=== PATIENT | male | born 1950 | race Caucasian/White ===

== ENCOUNTER 2022-05-05 07:36 | Day surgery (SDC) | payer MEDICARE ==
[~2022-05-05] VITALS: Ht 172.7 cm; Wt 73.5 kg
[~2022-05-05 07:36] MED LIST: ADV100INH INH; BENA25CA4 PO; BSS IRRIG/VANCO(10MG)/TOBRA(5MG)/EPINEPH(1:1000-0.5CC)500ML BAG-ORONLY IR ONE; CEFUROXIME 1MG/0.1ML INTRACAMERAL INJ As Ordered ONE; CETI5CHW PO; CYCLOPENTOLATE 1% OPHTH SOLN 2 ML BTL OD SCH; LIDOCAINE 1% SDV 5ML VIAL As Ordered ONE; LIDOCAINE 3.5 % 1ML OPHTH TOPICAL GEL OU ONE; LISI40TA4 PO; OFLOXACIN 0.3 % (OCUFLOX) OPTH SOL 5ML OD ONE; PHENYLEPHRINE 2.5% OPHTH SOL 2ML OD SCH; PHENYLEPHRINE HCL 10 % OPHTH. SOL 5ML OD PRN; POVIDONE-IODINE 5% OPHTH PREP SOL 30ML As Ordered ONE; PRESCAP PO; TROPICAMIDE 1% OPHTH SOLN 2ML OD SCH
[2022-05-05] MEDS ORDERED: MIDAZOLAM INJ 2MG/2ML VIAL (J2250 PER 1MG) As Ordered ONE (09:32)
[2022-05-05] MEDS ORDERED: fentaNYL 100 MCG/2 ML INJECTION As Ordered ONE (09:32)
[2022-05-05 09:35] VITALS: BP 144/85
== END 2022-05-05 09:55 | disposition home or self-care (01) ==
LOC: M SDC 07:36
PROVIDERS: ATTEND Ophthalmology
DX: H25.11 Age-related nuclear cataract, right eye (principal); I10 Essential (primary) hypertension; Z91.018 Allergy to other foods
CPT/HCPCS: 66984; J0697; J2250; J3010; V2632

== ENCOUNTER 2022-06-30 11:37 | Day surgery (SDC) | payer MEDICARE, MEDICAID ==
[~2022-06-30] VITALS: Ht 177.8 cm; Wt 73.1 kg
[~2022-06-30 11:37] MED LIST changes: +ACETYLCHOLINE OPHTH SOLN 1% 2ML (MIOCHOL-E) As Ordered ONE; -CYCLOPENTOLATE 1% OPHTH SOLN 2 ML BTL OD SCH; +CYCLOPENTOLATE 1% OPHTH SOLN 2 ML BTL OS SCH; +LIDOCAINE 1% 1ML PF SYRINGE (OR EYE CASES) As Ordered ONE; -LIDOCAINE 1% SDV 5ML VIAL As Ordered ONE; +MIDAZOLAM INJ 2MG/2ML VIAL (J2250 PER 1MG) As Ordered ONE; -OFLOXACIN 0.3 % (OCUFLOX) OPTH SOL 5ML OD ONE; +OFLOXACIN 0.3 % (OCUFLOX) OPTH SOL 5ML OS ONE; +PHENYLEPHRINE 10% OPHTH SOL 5ML OS PRN; -PHENYLEPHRINE 2.5% OPHTH SOL 2ML OD SCH; +PHENYLEPHRINE 2.5% OPHTH SOL 2ML OS SCH; -PHENYLEPHRINE HCL 10 % OPHTH. SOL 5ML OD PRN; -POVIDONE-IODINE 5% OPHTH PREP SOL 30ML As Ordered ONE; +TROPICAMIDE 1% OPHTH SOLN 15ML OS SCH; -TROPICAMIDE 1% OPHTH SOLN 2ML OD SCH
[2022-06-30 14:00] VITALS: BP 158/89
== END 2022-06-30 14:15 | disposition home or self-care (01) ==
LOC: M SDC 11:37 → MERGE 13:30 → M SDC 14:15
PROVIDERS: ATTEND Ophthalmology
DX: H25.12 Age-related nuclear cataract, left eye (principal); H57.03 Miosis; I10 Essential (primary) hypertension; R12 Heartburn; F41.9 Anxiety disorder, unspecified; J44.9 Chronic obstructive pulmonary disease, unspecified; F17.210 Nicotine dependence, cigarettes, uncomplicated; Z91.018 Allergy to other foods; Z79.899 Other long term (current) drug therapy; Z79.51 Long term (current) use of inhaled steroids
CPT/HCPCS: 66982; J0697; J2250; V2632

== ENCOUNTER 2024-12-07 23:18 | Inpatient (IN) | payer MEDICARE, MEDICAID ==
[~2024-12-07] VITALS: Ht 172.7 cm; Wt 71.8 kg
[2024-12-07 23:15] VITALS: BP 123/80; TEMP 97.9; O2SAT 95
[~2024-12-07 23:18] MED LIST changes: -ACETYLCHOLINE OPHTH SOLN 1% 2ML (MIOCHOL-E) As Ordered ONE; -ADV100INH INH; +ADVA1AER8 INH; -BSS IRRIG/VANCO(10MG)/TOBRA(5MG)/EPINEPH(1:1000-0.5CC)500ML BAG-ORONLY IR ONE; -CEFUROXIME 1MG/0.1ML INTRACAMERAL INJ As Ordered ONE; -CYCLOPENTOLATE 1% OPHTH SOLN 2 ML BTL OS SCH; -LIDOCAINE 1% 1ML PF SYRINGE (OR EYE CASES) As Ordered ONE; -LIDOCAINE 3.5 % 1ML OPHTH TOPICAL GEL OU ONE; -MIDAZOLAM INJ 2MG/2ML VIAL (J2250 PER 1MG) As Ordered ONE; -OFLOXACIN 0.3 % (OCUFLOX) OPTH SOL 5ML OS ONE; -PHENYLEPHRINE 10% OPHTH SOL 5ML OS PRN; -PHENYLEPHRINE 2.5% OPHTH SOL 2ML OS SCH; -TROPICAMIDE 1% OPHTH SOLN 15ML OS SCH
[2024-12-07] MEDS ORDERED: MORPHINE 2 MG/ML 1ML VIAL IV PRN (23:55)
[2024-12-07] MEDS ORDERED: PROMETHAZINE 25MG/ML 1ML VIAL IV PRN (23:55)
[2024-12-08] VITALS (7 sets, daily range): BP systolic 123–152; BP diastolic 73–95; TEMP 98.1–98.2; O2SAT 93–96
[2024-12-08 00:36] LABS: BASO # 0.1 10^3/uL (0.0-0.2); BASO % 0.4 % (0.0-1.0); EOS % 0.1 % (0.0-3.0); HEMATOCRIT 33.9 % (42.0-52.0); HEMOGLOBIN 12.3 g/dl (13.5-17.5); LYMPH # 1.7 10^3/uL (1.5-5.0); LYMPH % 10.8 % (24.0-44.0); MEAN CORPUSCULAR HEMOGLOBIN 33.4 pg (27.0-33.0); MEAN CORPUSCULAR HGB CONC 36.3 g/dl (32.0-36.5); MEAN CORPUSCULAR VOLUME 92.1 fl (80.0-96.0); MONO # 1.7 10^3/uL (0.0-0.8); MONO % 10.4 % (2.0-8.0); NEUTROPHILS # 12.5 10^3/uL (1.5-8.5); NEUTROPHILS % 77.8 % (36.0-66.0); PLATELET COUNT, AUTOMATED 356 10^3/uL (150-450); RED BLOOD COUNT 3.68 10^6/uL (4.30-6.10); WHITE BLOOD COUNT 16.1 10^3/uL (4.0-10.0)
[2024-12-08] MEDS: LR 1,000 ML IV SCH (00:38)
[2024-12-08 00:40] LABS: INR 0.86; PARTIAL THROMBOPLASTIN TIME 26.8 SECONDS (24.8-34.2)
[2024-12-08 00:54] LABS: ALBUMIN 3.9 G/DL (3.2-5.2); BILIRUBIN,TOTAL 0.6 MG/DL (0.3-1.2); CREATININE FOR GFR 0.92 MG/DL (0.70-1.30); GLOMERULAR FILTRATION RATE 87.3 (>42)
[2024-12-08] MEDS: KETOROLAC 30 MG/ML 1ML VIAL IV PRN (01:25)
[2024-12-08] MEDS ORDERED: ALBUTEROL 90 MCG/ACT 8GM HFA INHALER INH PRN (06:20)
[2024-12-08 08:01] LABS: BASO # 0.1 10^3/uL (0.0-0.2); BASO % 0.4 % (0.0-1.0); EOS # 0.1 10^3/uL (0.0-0.5); EOS % 0.6 % (0.0-3.0); HEMATOCRIT 34.3 % (42.0-52.0); HEMOGLOBIN 12.1 g/dl (13.5-17.5); LYMPH # 1.3 10^3/uL (1.5-5.0); LYMPH % 10.8 % (24.0-44.0); MEAN CORPUSCULAR HEMOGLOBIN 32.7 pg (27.0-33.0); MEAN CORPUSCULAR HGB CONC 35.3 g/dl (32.0-36.5); MEAN CORPUSCULAR VOLUME 92.7 fl (80.0-96.0); MONO # 1.5 10^3/uL (0.0-0.8); MONO % 12.3 % (2.0-8.0); NEUTROPHILS # 9.3 10^3/uL (1.5-8.5); NEUTROPHILS % 75.4 % (36.0-66.0); PLATELET COUNT, AUTOMATED 360 10^3/uL (150-450); WHITE BLOOD COUNT 12.4 10^3/uL (4.0-10.0)
[2024-12-08 08:21] LABS: C REACTIVE PROTEIN QUANTITATIV 2.08 MG/DL (<1.0)
[2024-12-08 08:31] LABS: CALCIUM LEVEL 8.7 MG/DL (8.3-10.6); CREATININE FOR GFR 1.1 MG/DL (0.70-1.30); GLOMERULAR FILTRATION RATE 70.4 (>42); POTASSIUM SERUM 4.8 MMOL/L (3.5-5.1)
[2024-12-08] MEDS ORDERED: IBUP200C28 PO (08:32)
[2024-12-08] MEDS ORDERED: BUDE10.7 INH (08:32)
[2024-12-08] MEDS ORDERED: OCUVTAB4 PO (08:32)
[2024-12-08] MEDS ORDERED: CETI-24 PO (08:32)
[2024-12-08] MEDS ORDERED: LISI20TA33 PO (08:32)
[2024-12-08] MEDS ORDERED: COMBAER6 INH (08:32)
[2024-12-08] MEDS ORDERED: DIPH25TA4 PO (08:32)
[2024-12-08 08:33] LABS: PROCALCITONIN 0.15 ng/ml
[2024-12-08] MEDS ORDERED: HOME MED LIST COMPLETE! XX SCH (08:35)
[2024-12-08] MEDS: PANTOPRAZOLE 40MG VIAL IV SCH (08:36)
[2024-12-08] MEDS ORDERED: IPRATROPIUM 0.5MG/ALBUTEROL 2.5MG INH SOL UD 3ML NEB PRN (10:10)
[2024-12-08] MEDS: CETIRIZINE 10 MG TAB PO SCH (11:30)
[2024-12-08] MEDS: ACETAMINOPHEN 325 MG TAB PO PRN (11:33)
[2024-12-08] MEDS ORDERED: LORazepam 2 MG TAB PO PRN (11:40)
[2024-12-08] MEDS: TOLVAPTAN 7.5 MG HALF-TAB PO ONE (12:17)
[2024-12-08] MEDS: LOSARTAN 25 MG TAB PO SCH (12:17)
[2024-12-08] MEDS: FOLIC ACID 1MG TAB PO SCH (12:17)
[2024-12-08] MEDS: MULTIVITAMINS/MINERALS THERAP 1 TAB PO SCH (12:17)
[2024-12-08] MEDS: ENOXAPARIN 40MG/0.4ML SYRINGE (J1650 PER 10MG) SC SCH (12:18)
[2024-12-08] MEDS: THIAMINE 100 MG TAB PO SCH (12:18)
[2024-12-08] MEDS: chlordiazePOXIDE 25 MG CAP PO SCH (12:29)
[2024-12-08] MEDS: IPRATROPIUM 0.5MG/ALBUTEROL 2.5MG INH SOL UD 3ML NEB SCH (13:30)
[2024-12-08 16:54] LABS: CALCIUM LEVEL 8.2 MG/DL (8.3-10.6); CREATININE FOR GFR 1.01 MG/DL (0.70-1.30); POTASSIUM SERUM 4.9 MMOL/L (3.5-5.1)
[2024-12-08] MEDS: NICOTINE 14 MG/24 HR TRANSDERMAL TD SCH (17:54)
[2024-12-08] MEDS: BREZTRI INH SCH (19:34)
[2024-12-09] VITALS (13 sets, daily range): BP systolic 76–148; BP diastolic 52–94; TEMP 97.5–99.1; O2SAT 92–96
[2024-12-09 06:28] LABS: BASO # 0.1 10^3/uL (0.0-0.2); BASO % 0.5 % (0.0-1.0); EOS # 0.1 10^3/uL (0.0-0.5); EOS % 0.4 % (0.0-3.0); HEMATOCRIT 32.7 % (42.0-52.0); HEMOGLOBIN 11.6 g/dl (13.5-17.5); LYMPH # 1.3 10^3/uL (1.5-5.0); LYMPH % 9.5 % (24.0-44.0); MEAN CORPUSCULAR HGB CONC 35.5 g/dl (32.0-36.5); MEAN CORPUSCULAR VOLUME 93.2 fl (80.0-96.0); MONO # 1.6 10^3/uL (0.0-0.8); NEUTROPHILS # 10.3 10^3/uL (1.5-8.5); NEUTROPHILS % 77.1 % (36.0-66.0); PLATELET COUNT, AUTOMATED 342 10^3/uL (150-450); RED BLOOD COUNT 3.51 10^6/uL (4.30-6.10); WHITE BLOOD COUNT 13.3 10^3/uL (4.0-10.0)
[2024-12-09 06:58] LABS: CALCIUM LEVEL 8.8 MG/DL (8.3-10.6); CREATININE FOR GFR 0.97 MG/DL (0.70-1.30); GLOMERULAR FILTRATION RATE 81.9 (>42)
[2024-12-09] MEDS ORDERED: ROCURONIUM BROMIDE 50MG/5ML VIAL As Ordered ONE (12:29)
[2024-12-09] MEDS ORDERED: LIDOCAINE 2% 100MG/5ML SDV (FOR ANES.) As Ordered ONE (12:29)
[2024-12-09] MEDS ORDERED: propofoL 200 MG/20 ML VIAL As Ordered ONE (12:29)
[2024-12-09] MEDS ORDERED: fentaNYL 100 MCG/2 ML INJECTION As Ordered ONE (13:18)
[2024-12-09] MEDS ORDERED: MIDAZOLAM INJ 2MG/2ML VIAL As Ordered ONE (13:18)
[2024-12-09] MEDS: TRANEXAMIC ACID 100 MG/ML 10ML VIAL As Ordered ONE (13:30)
[2024-12-09] MEDS: ceFAZolin SODIUM 2 GM VIAL As Ordered ONE (13:33)
[2024-12-09] MEDS ORDERED: PHENYLEPHRINE 10MG/ML 1ML VIAL As Ordered ONE (13:47)
[2024-12-09] MEDS ORDERED: ONDANSETRON 4MG 2ML VIAL As Ordered ONE (13:47)
[2024-12-09] MEDS ORDERED: ACETAMINOPHEN 1000MG/100ML IV BAG As Ordered ONE (14:57)
[2024-12-09] MEDS ORDERED: SUGAMMADEX SODIUM 500 MG/5 ML VIAL As Ordered ONE (15:14)
[2024-12-09] MEDS ORDERED: HYDROmorphone HCL 2MG/ML 1ML VIAL As Ordered ONE (15:17)
[2024-12-09] MEDS: VANCOMYCIN 1000MG/20ML VIAL As Ordered ONE (15:17)
[2024-12-09] MEDS: BUPivacaine LIPOSOME/PF 266MG 20ML VIAL (13.3MG/ML)(EXPAREL) As Ordered ONE (15:18)
[2024-12-09] MEDS ORDERED: MORPHINE 2 MG/ML 1ML VIAL IV PRN (15:35)
[2024-12-09] MEDS ORDERED: oxyCODONE 5MG TAB PO PRN ×2 (15:35→16:00)
[2024-12-09] MEDS ORDERED: fentaNYL 100 MCG/2 ML INJECTION IV PRN (15:35)
[2024-12-09] MEDS ORDERED: ONDANSETRON 4MG 2ML VIAL IV PRN (15:35)
[2024-12-09] MEDS ORDERED: ACETAMINOPHEN 325 MG TAB PO PRN (16:00)
[2024-12-09] MEDS ORDERED: IBUPROFEN 600MG TAB PO PRN (16:00)
[2024-12-09] MEDS: ceFAZolin SOD 1 GM in DEXTROSE 5% (D5W) ADV/MINI-BAG 50 ML IV SCH (20:59)
[2024-12-09] MEDS: NS (Normal Saline) 0.9% 1,000 ML IV ONE (22:40)
[2024-12-10] VITALS (9 sets, daily range): BP systolic 109–140; BP diastolic 62–84; TEMP 97.9–99; O2SAT 91–97
[2024-12-10] MEDS: MORPHINE 4 MG/ML 1ML VIAL IV PRN (04:48)
[2024-12-10 05:58] LABS: BASO % 0.1 % (0.0-1.0); HEMATOCRIT 29.1 % (42.0-52.0); HEMOGLOBIN 10.1 g/dl (13.5-17.5); LYMPH # 0.9 10^3/uL (1.5-5.0); LYMPH % 5.1 % (24.0-44.0); MEAN CORPUSCULAR HEMOGLOBIN 33.6 pg (27.0-33.0); MEAN CORPUSCULAR HGB CONC 34.7 g/dl (32.0-36.5); MEAN CORPUSCULAR VOLUME 96.7 fl (80.0-96.0); MONO # 1.8 10^3/uL (0.0-0.8); MONO % 9.7 % (2.0-8.0); NEUTROPHILS # 15.4 10^3/uL (1.5-8.5); NEUTROPHILS % 84.7 % (36.0-66.0); PLATELET COUNT, AUTOMATED 290 10^3/uL (150-450); RED BLOOD COUNT 3.01 10^6/uL (4.30-6.10); WHITE BLOOD COUNT 18.2 10^3/uL (4.0-10.0)
[2024-12-10 06:29] LABS: BLOOD UREA NITROGEN 11 MG/DL (9-23); CALCIUM LEVEL 8.2 MG/DL (8.3-10.6); CARBON DIOXIDE LEVEL 27 MMOL/L (20-31); CHLORIDE LEVEL 99 MMOL/L (98-107); CREATININE FOR GFR 0.85 MG/DL (0.70-1.30); GLOMERULAR FILTRATION RATE > 90.0 (>42); GLUCOSE, FASTING 169 MG/DL (74-106); POTASSIUM SERUM 4.7 MMOL/L (3.5-5.1); SODIUM LEVEL 133 MMOL/L (136-145)
[2024-12-10 08:44] LABS: C REACTIVE PROTEIN QUANTITATIV 7.29 MG/DL (<1.0)
[2024-12-10 09:01] LABS: PROCALCITONIN 0.07 ng/ml
[2024-12-10] MEDS: ENOXAPARIN 40MG/0.4ML SYRINGE (J1650 PER 10MG) SC SCH (16:07)
[2024-12-10] MEDS: MOM 30ML SUSPENSION UDC PO PRN (18:09)
[2024-12-11 04:00] VITALS: BP 140/83; TEMP 97; O2SAT 92
[2024-12-11 06:24] LABS: BASO # 0.1 10^3/uL (0.0-0.2); BASO % 0.4 % (0.0-1.0); EOS # 0.1 10^3/uL (0.0-0.5); EOS % 0.3 % (0.0-3.0); HEMATOCRIT 29.8 % (42.0-52.0); HEMOGLOBIN 10.2 g/dl (13.5-17.5); LYMPH # 1.9 10^3/uL (1.5-5.0); LYMPH % 11.4 % (24.0-44.0); MEAN CORPUSCULAR HEMOGLOBIN 32.2 pg (27.0-33.0); MEAN CORPUSCULAR HGB CONC 34.2 g/dl (32.0-36.5); MONO % 15.3 % (2.0-8.0); NEUTROPHILS # 12.2 10^3/uL (1.5-8.5); PLATELET COUNT, AUTOMATED 315 10^3/uL (150-450); RED BLOOD COUNT 3.17 10^6/uL (4.30-6.10); WHITE BLOOD COUNT 16.9 10^3/uL (4.0-10.0)
[2024-12-11 06:49] LABS: BLOOD UREA NITROGEN 12 MG/DL (9-23); CALCIUM LEVEL 8.3 MG/DL (8.3-10.6); CARBON DIOXIDE LEVEL 28 MMOL/L (20-31); CHLORIDE LEVEL 97 MMOL/L (98-107); CREATININE FOR GFR 0.87 MG/DL (0.70-1.30); GLOMERULAR FILTRATION RATE > 90.0 (>42); GLUCOSE, FASTING 109 MG/DL (74-106); POTASSIUM SERUM 4.2 MMOL/L (3.5-5.1); SODIUM LEVEL 132 MMOL/L (136-145)
[2024-12-11 07:21] LABS: MONO # 2.6 10^3/uL (0.0-0.8)
[2024-12-11] MEDS: chlordiazePOXIDE 25 MG CAP PO SCH (09:39)
[2024-12-11 09:41] VITALS: BP 140/83
[2024-12-11] MEDS: cefTRIAXone SOD 2 GM in DEXTROSE 5% (D5W) ADV/MINI-BAG 50 ML IV SCH (09:43)
[2024-12-11] MEDS: SENOKOT S TAB PO SCH (09:47)
[2024-12-11] MEDS ORDERED: NICO1DIS12 TOP (11:39)
[2024-12-11] MEDS ORDERED: CEFD1CAP9 PO (11:39)
[2024-12-11] MEDS ORDERED: LOSA-527 PO (11:47)
[2024-12-11 12:08] VITALS: BP 132/32; TEMP 99.1; O2SAT 93
== END 2024-12-11 13:15 | disposition home or self-care (01) | DRG 522 ==
LOC: M MSPAV 23:18
PROVIDERS: ADMIT Student in an Organized Health Care Education/Training Program; ATTEND Student in an Organized Health Care Education/Training Program
PROC: 0SRR0JZ Replacement of Right Hip Joint, Femoral Surface with Synthetic Substitute, Open Approach (ICD-10-PCS; principal; 2024-12-09 12:00)
DX: S72.011A Unspecified intracapsular fracture of right femur, initial encounter for closed fracture (principal); E87.1 Hypo-osmolality and hyponatremia; N17.9 Acute kidney failure, unspecified; W55.22XA Struck by cow, initial encounter; Y92.9 Unspecified place or not applicable; I10 Essential (primary) hypertension; J44.9 Chronic obstructive pulmonary disease, unspecified; F17.210 Nicotine dependence, cigarettes, uncomplicated; F10.10 Alcohol abuse, uncomplicated; K21.9 Gastro-esophageal reflux disease without esophagitis; F41.9 Anxiety disorder, unspecified; Z98.41 Cataract extraction status, right eye; Z98.42 Cataract extraction status, left eye; Z79.899 Other long term (current) drug therapy; Z91.018 Allergy to other foods; Z71.41 Alcohol abuse counseling and surveillance of alcoholic

== ENCOUNTER → 2024-12-15 | Outpatient (CLI) | payer MEDICARE, MEDICAID ==
[~2024-12-15] MED LIST changes: +BUDE10.7 INH; +CEFD1CAP9 PO; +CETI-24 PO; +COMBAER6 INH; +DIPH25TA4 PO; +IBUP200C28 PO; +LISI20TA33 PO; +LOSA-527 PO; +NICO1DIS12 TOP; +OCUVTAB4 PO
== END ==
LOC: M SOG 06:51
PROVIDERS: ATTEND Physician Assistant
DX: Z96.641 Presence of right artificial hip joint (principal)

== ENCOUNTER → 2025-04-06 | Outpatient (CLI) | payer MEDICARE, MEDICAID ==
[~2025-04-06] MED LIST changes: +LISI40TA10 PO; -LISI40TA4 PO
== END ==
LOC: M SOG 07:22
PROVIDERS: ATTEND Physician Assistant
DX: S72.001D Fracture of unspecified part of neck of right femur, subsequent encounter for closed fracture with routine healing (principal)